=== PATIENT | male | born 1985 | race African-American/Black ===

== ENCOUNTER 2019-03-06 16:18 | Emergency (ER) | payer SELFPAY ==
[~2019-03-06] VITALS: Ht 188 cm; Wt 84.0 kg
[2019-03-06 17:15] VITALS: BP 116/76
[2019-03-06] MEDS ORDERED: IBUPROFEN 600MG TABLET PO STA (21:30)
== END 2019-03-06 22:05 | disposition home or self-care (01) ==
LOC: ER 16:18
DX: L03.011 Cellulitis of right finger (principal)
CPT/HCPCS: 99283; Z7610